=== PATIENT | male | born 1985 | race Caucasian/White ===

== ENCOUNTER 2021-08-27 15:01 | Emergency (ER) | payer SELFPAY ==
[2021-08-27 15:05] VITALS: BP 128/87; PULSE 105; RESP 18; TEMP 36.8; O2SAT 97; BMI 21.7
--- NOTE | 2021-08-27 16:04 | ED.SKABFB ---
HPI - Skin/Abscess/Foreign Bdy General Chief complaint: Skin/Abscess/Foreign Body Stated complaint: hives Time Seen by Provider: 08/27/21 15:53 Source: patient Mode of arrival: ambulatory Limitations: no limitations History of Present Illness HPI narrative: 35 y/o who presents with diffuse itchy hives all over his anterior and posterior trunk, groin along with a sensation of upper lip swelling that started about 3 or 4 hours ago. He reports similar hives that started yesterday at noon time and spontaneously resolved on their own after a cold shower last night. He denies any history of episodes like this in the past. His only allergy is to bee stings and he gets a localized reaction with this. He denies any new soaps, detergents, lotions, perfumes. No new foods. He denies any sensation of throat closing or swelling. No wheezing. He did not take any medications for the rash. MD complaint: rash Onset (ago): day(s) (1) Location: face, chest and back Severity: severe Severity scale (1-10): 7 Quality: burning and pruritic Pain Consistency: constant Relieving factors: none Exacerbating factors: none Context: none Associated symptoms: itching Treatments prior to arrival: none Related Data Allergies Allergy/AdvReac Type Severity Reaction Status Date / Time No Known Allergies Allergy Verified 08/27/21 15:05 Review of Systems Review of Systems: Constitutional: No Fever, No Chills ENT/Mouth: No sore throat, No Rhinorrhea, No Swallowing Difficulty Eyes: No Eye Pain, No Swelling, No Redness Cardiovascular: No Chest Pain, No SOB, No Edema Respiratory: No Cough, No Sputum, No Wheezing, No dyspnea Gastrointestinal: No Nausea, No Vomiting, No Diarrhea, No abdominal Pain Musculoskeletal: No joint pain, No Myalgias Skin: No Skin Lesions, + rash Neuro: No Weakness, No Numbness, No Dizziness, No Headache Psych: No Anxiety/Panic, No Depression Heme/Lymph: No Bruising, No Lymphadenopathy PMFSH Past Medical History Medical History (Updated 08/27/21 @ 16:44 by RAMEZ Elliott) Patient denies medical problems Social History Social History Alcohol intake: former Patient Tobacco Use Status: Former Tobacco user Advance Directives: No Advance Directives Information Provided: No Physical Exam Vital Signs: Vital Signs: Last Vital Signs Temp 98.3 F 08/27/21 15:05 Pulse 83 08/27/21 16:19 Resp 18 08/27/21 15:05 BP 128/87 08/27/21 15:05 Pulse Ox 99 08/27/21 16:19 Body Mass Index 21.7 Appearance: Alert. Oriented X3. No acute distress. Eyes: Pupils equal, round and reactive to light. ENT: Normal appearance of lips. Reports decreased sensation of the central portion of the upper lip. No noted swelling. Pharynx normal. Normal upper palate and soft palate. Uvula midline airway patent. Neck: Normal inspection. Neck supple. No lymphadenopathy. CVS: Tachycardic, regular rhythm. Pulses normal. Respiratory: No respiratory distress. Breath sounds normal. No wheezing. Speaking in complete sentences. Abdomen: Soft and nontender. +BS x4 Skin: Skin warm and dry. Normal skin color. Normal skin turgor. There are diffuse erythematous & urticarial like lesions all over the anterior and posterior trunk. Extremities: No lower extremity edema. No urticaria on the lower extremities or upper extremities. Neuro: Oriented X 3. No motor deficit. No sensory deficit. Course Course Course Narrative: 35-year-old male presenting with hives of his anterior and posterior trunk and inguinal area. He reports sensation of upper lip swelling and numbness. No evidence of angioedema at this time. Airway is patent no wheezing on exam. Will monitor closely and give dose of IV Solu-Medrol, IV Benadryl and IV Pepcid for allergic reaction. Unknown insult or cause. Reevaluation(s) Reevaluation #1: Patient had complete resolution of his rash with treatment of IV steroids and IV Benadryl. He feels back to normal. His lipid no longer feels swollen or numb. He is stable for discharge home with continued antihistamine treatment. Encouraged follow-up with PCP for allergy testing. He currently does not have health insurance so is unable to get this done at this time. Time: 17:40 Critical Care Time Critical Care Time Critical Care Time: Yes Total Critical Care Time: 36 Attestation: I have personally provided critical care time exclusive of time spent on separately billable procedures. Time includes close and repeated evaluations and monitoring for potential decompensation. Intervention performed as documented. Discharge Plan Discharge Clinical Impression: Urticaria Patient Disposition: Home, Self-Care Instructions: Urticaria (ED), Acute Rash (ED) Additional Instructions: Recommend taking 25-50 mg of Benadryl every 6-8 hours for the next 24 hours. Take 50 mg tonight before bed. If you develop new or worsening symptoms call 911 or come back to the ER for further evaluation.
[2021-08-27] MEDS: diphenhydrAMINE HCL 50 MG/ML VIAL IVPUSH (16:13)
[2021-08-27] MEDS: methylPREDNISolone Sod Succ 125 MG/2 ML VIAL IVPUSH (16:15)
[2021-08-27] MEDS: Famotidine/PF 20 MG/2 ML VIAL IVPUSH (16:16)
[2021-08-27 16:19] VITALS: PULSE 83; O2SAT 99
== END 2021-08-27 17:44 | disposition home or self-care (01) ==
PROVIDERS: Emergency Provider Emergency Medicine Emergency Medical Services
DX: L50.9 Urticaria, unspecified (principal); Z87.891 Personal history of nicotine dependence; Z79.899 Other long term (current) drug therapy
CPT/HCPCS: 96374; 96375; 99284; 99291; J1200; J2930